=== PATIENT | female | born 1980 ===

== ENCOUNTER → 2018-10-19 21:15 | Outpatient (REF) | payer OTHER, MEDICARE, SELFPAY ==
[2018-10-19 21:19] LABS: RBC Urine None Seen (0-5/HPF); WBC Urine None Seen (0-5/HPF)
[2018-10-19 22:48] LABS: Appearance Urine UA CLEAR; Bilirubin Urine UA NEGATIVE (NEGATIVE); Color Urine UA YELLOW; Glucose Urine UA NEGATIVE (Negative); Ketones Urine UA NEGATIVE (NEGATIVE); Leukocyte Esterase Urine UA NEGATIVE (NEGATIVE); Nitrite Urine UA NEGATIVE (Negative); Occult Blood Urine UA NEGATIVE (Negative); Protein Urine UA NEGATIVE (Negative); Urobilinogen Urine UA 0.2 E.U./dL (0.2); pH Urine UA 6.5 (4.5-8.0)
[2018-10-19 22:49] LABS: Pregnancy Test Urine Positive (Negative)
[2018-10-20 01:22] LABS: HIV 1 and 2 Antibody NEGATIVE (NEGATIVE); Hep C Virus Ab w/Reflex Quant NEGATIVE s/c (NEGATIVE)
[2018-10-20 01:27] LABS: Bacteria Urine Few (2-10); Culture Indicated Urine Cult Not Indicated; Squamous Epithelial Cell Urine 1-5 /HPF
[2018-10-20 05:46] LABS: Free T3, Triiodothyronine Free 3.87 pg/mL (2.77-5.27); Free T4, Direct Thyroxine 1.09 ng/dL (0.78-2.19)
[2018-10-20 06:00] LABS: Thyroid Stimulating Hormone 1.06 uIU/mL (0.47-4.68)
[2018-10-20 09:36] LABS: Urine N gonorrhoeae NOT DETECTED
[2018-10-20 09:47] LABS: Urine Chlamydia NOT DETECTED
[2018-10-22 14:00] LABS: RPR Screen Nonreactive (Nonreactive)
[2018-10-22 15:56] LABS: C.albicans IgA 1.3; C.albicans IgG 1.3; C.albicans IgM 0.4 (<1.0)
[2018-10-22 16:43] LABS: HSV 2 IGG AB < 0.90 index (< 0.90)
[2018-10-23 16:41] LABS: Hepatitis B Core Antibody Nonreactive (Nonreactive)
== END ==
LOC: LAB 21:15
PROVIDERS: Visit Provider Acupuncturist
DX: L29.8 Other pruritus (principal)
CPT/HCPCS: 36415; 81001; 81025; 84439; 84443; 84481; 86592; 86628; 86695; 86696; 86703; 86704; 86803; 87491; 87591